=== PATIENT | male | born 1990 | race Caucasian/White ===

== ENCOUNTER 2021-04-18 15:49 | Emergency (ER) | payer BC, SELFPAY ==
[2021-04-18 19:00] VITALS: BP 126/88; PULSE 86; RESP 21; TEMP 37.2; O2SAT 99; BMI 26.2
[2021-04-18 19:08] LABS: UTC Strep Screen (Rapid) Negative (Negative)
--- NOTE | 2021-04-18 19:15 | HMH.EDUTC ---
[facility] [place] Disposition Clinical Impression: Upper respiratory infection, viral Disposition: Home, Self-Care Condition on Discharge: Good Instructions: COVID-19 Viral Test, DI for Viral Upper Respiratory Infection -- Adult Additional Instructions: covid swab was sent to lab, call tomorrow for results. self isolate until test results are known to be negative No sign of a bacterial infection. Likely viral. Viruses can take 7-14 days to run their course. Nasal saline and bulb syringe or nose Edilia to remove nasal drainage to help with nasal congestion. Hard to eat, drink, sleep with nasal congestion so important to keep this cleaned out. Monitor temp. Tylenol or Motrin as needed for pain or fever Encourage fluids, water, Gatorade, Powerade, Pedialyte if infant/toddler/child Warm salt water gargles Warm fluids Sore throat lozenges Sleep elevated Humidifier/vaporizer Follow-up immediately for new or worsening symptoms or no noticeable improvement over the next 48-72 hours. Referrals: Demetrio Thompson MD [Primary Care Provider] - Forms: Work/School Release Time of Disposition: 19:18 Medical Decision Making - Gume Inquiry Pt receiving controlled substance: No - Lab Data Lab Results 04/18/21 18:57: Strep Scn Rapid Clinic Negative Orders (Tests/Meds): ORDERS Category Date Time Status Covid-19 Nasal PCR ([facility]) Routine Lab 04/18/21 18:48 Received Strep Screen Confirmation Stat Micro 04/18/21 18:57 Received [facility] [place] HPI - General Chief complaint: Urgent Treatment Center Stated complaint: at home postive test , also possible strep Time Seen by Provider: 04/18/21 19:15 Mode of Arrival: Ambulatory Source of Information: Patient Limitations: No Limitations - History of Present Illness Provider Complaint: 30 yr old male presents for covid test, tested positive at home. pt reports cough,body aches,chills, and sore throat - Related Data Allergies Allergy/AdvReac Type Severity Reaction Status Date / Time No Known Allergies Allergy Verified 05/10/17 16:14 [facility] History - Hepatitis A Screen Attestation statement:: This patient has been screened for Hepatitis A risk factors. I have reviewed the patient's past medical history: Yes ROS Obtained: Yes Systems reviewed as appropriate & no additional complaints - Constitutional Constitutional: Reports system reviewed and no additional complaints, except as docu, Reports body ache, Reports chills, Reports fatigue, Denies fever(s) - Eyes Eyes: Reports system reviewed and no additional complaints, except as docu, Denies blind spots - ENT Ears, Nose, Mouth, and Throat: Reports system reviewed and no additional complaints, except as docu, Reports headache(s), Reports nasal congestion, Reports sinus pressure, Reports sore throat - Cardiovascular Cardiovascular: Reports system reviewed and no additional complaints, except as docu, Denies chest pain - Respiratory Respiratory: Reports system reviewed and no additional complaints, except as docu, Reports cough - Gastrointestinal Gastrointestingal: Reports: system reviewed and no additional complaints, except as docu. Denies: abdominal pain - Genitourinary Male Genitourinary: Reports system reviewed and no additional complaints, except as docu - Musculoskeletal Musculoskeletal: Reports system reviewed and no additional complaints, except as docu, Denies joint pain - Integumentary/Breasts Skin/Breast: Reports system reviewed and no additional complaints, except as docu, Denies rash - Neurologic Neurologic: Reports system reviewed and no additional complaints, except as docu, Denies loss of vision - Endocrine Endocrine: Reports system reviewed and no additional complaints, except as docu, Denies fatigue - Hematologic/Lymphatic Henatologic/Lymphatic: Reports system reviewed and no additional complaints, except as docu, Denies easy bruising - Allergic/Immunologic Allergic/Immunologic: Reports sys
[2021-04-18 19:20] VITALS: BP 126/88; PULSE 86; RESP 21; TEMP 37.2; O2SAT 99
[2021-04-18 19:55] LABS: Adenovirus,PCR Not Detected (NotDetected); Bordetella Pertussis Not Detected (NotDetected); Chlamydophila Pneumoniae, PCR Not Detected (NotDetected); Coronavirus 229E Not Detected (NotDetected); Coronavirus NL63 Not Detected (NotDetected); Coronavirus OC43 Not Detected (NotDetected); Coronovirus HKU1,PCR Not Detected (NotDetected); Human Metapneumovirus Not Detected (NotDetected); Influenza A, PCR Not Detected (NotDetected); Influenza AH1, 2009 Not Detected (NotDetected); Influenza AH1, PCR Not Detected (NotDetected); Influenza AH3,PCR Not Detected (NotDetected); Influenza B, PCR Not Detected (NotDetected); Mycoplasma Pneumoniae, PCR Not Detected (NotDetected); Parainfluenza 1, PCR Not Detected (NotDetected); Parainfluenza 2, PCR Not Detected (NotDetected); Parainfluenza 3, PCR Not Detected (NotDetected); Parainfluenza 4, PCR Not Detected (NotDetected); Respiratory Syncytial Virus Not Detected (NotDetected); Rhinovirus/Enterovirus Not Detected (NotDetected)
[2021-04-18 21:27] LABS: Coronavirus 19, PCR Detected (NotDetected)
== END 2021-04-18 19:25 | disposition home or self-care (01) ==
PROVIDERS: Emergency Provider Nurse Practitioner Family; PCP Family Medicine
DX: U07.1 COVID-19 (principal); J06.9 Acute upper respiratory infection, unspecified
CPT/HCPCS: 87581; 87632; 87798; 87880; 99203; C9803; G0463; U0003; U0005

== ENCOUNTER 2021-09-02 13:58 | Emergency (ER) | payer BC, SELFPAY ==
--- NOTE | 2021-09-02 14:03 | XR_ITS ---
FINAL REPORT CLINICAL HISTORY: swollen and pain lt ankle, rolled ankle 10 days ago FINDINGS: AP, oblique, and lateral views of the left ankle were obtained. There is no prior exam for comparison. There is no fracture or dislocation. The ankle mortise is intact. There is mild lateral soft tissue swelling. IMPRESSION: No acute osseous abnormality of the left ankle. Lateral soft tissue swelling. Reviewed, Interpreted and Dictated by Allison Pinon MD Transcribed by Jluis Oconnor Authenticated by Allison Pinon MD on 09/02/2021 02:53:43 PM [facility]
[2021-09-02 14:20] VITALS: BP 117/73; PULSE 61; RESP 19; TEMP 36.6; O2SAT 98; BMI 27.8
--- NOTE | 2021-09-02 14:27 | HMH.EDUTC ---
[facility] [place] Disposition Clinical Impression: Contact dermatitis Qualifiers: Contact dermatitis type: allergic Contact dermatitis trigger: non-food plants Qualified Code(s): L23.7 - Allergic contact dermatitis due to plants, except food Left ankle sprain Qualifiers: Encounter type: initial encounter Involved ligament of ankle: unspecified ligament Qualified Code(s): S93.402A - Sprain of unspecified ligament of left ankle, initial encounter Disposition: Home, Self-Care Condition on Discharge: Good Instructions: DI for Poison Ely Allergy, DI for Ankle Sprain Additional Instructions: Avoid contact with the offending substance (poison ely). Don't start the oral steroids until tomorrow. Don't put the topical steroids (triamcinolone) on your face or your groin. Follow up with your regular doctor. GO TO THE ER FOR ANY WORSENING SYMPTOMS OR CONCERNS Rest the extremity, Elevate the extremity as tolerated while you are resting. Take ibuprofen for pain. Follow up with Dr. Keith (podiatry). Sometimes there can be fractures that don't show up well on the first set of x-rays. So, you should follow up. I put in a referral but you need to call her office and schedule an appointment. Follow up with your regular doctor. GO TO THE ER FOR ANY WORSENING SYMPTOMS Prescriptions: methylPREDNISolone [Medrol] 4 mg PO DIRECTED 6 Days #21 packet Transmission Status: Received by [id number] Triamcinolone Acetonide 1 applicatio TP TIDP PRN 7 Days #1 gm PRN Reason: Itching Transmission Status: Received by [id number] Referrals: Demetrio Thompson MD [Primary Care Provider] - Jordyn Keith DPM [Staff Physician] - Time of Disposition: 14:49 Medical Decision Making - Medical Records Medical records reviewed: No: I reviewed the patient's medical records. - Gume Inquiry Pt receiving controlled substance: No Vital Signs: 09/02/21 14:20 09/02/21 14:52 Temperature 97.8 F 97.8 F Temperature Source Oral Oral Pulse Rate 61 Pulse Rate [Left Radial] 61 Respiratory Rate 19 19 Blood Pressure 117/73 Blood Pressure [Right Arm] 117/73 Blood Pressure Mean [Right Arm] 87 02 Sat by Pulse Oximetry 98 Orders (Tests/Meds): ED MEDICATIONS Discontinued Medications Generic Name Dose Route Start Last Admin Trade Name Freq PRN Reason Stop Dose Admin Methylprednisolone Sodium Succinate 125 mg 09/02/21 14:27 09/02/21 14:49 Methylprednisolone Sod Succ 125mg Vial IM 09/02/21 14:28 125 mg ONCE ONE Administration - Radiology Data #1 Image(s): Ankle Image Reviewed: Yes I reviewed the patient's radiology image, Yes I have reviewed radiologist's interpretation Preliminary Findings: Normal/NAD, No Fracture Seen FINAL REPORT CLINICAL HISTORY: swollen and pain lt ankle, rolled ankle 10 days ago FINDINGS: AP, oblique, and lateral views of the left ankle were obtained. There is no prior exam for comparison. There is no fracture or dislocation. The ankle mortise is intact. There is mild lateral soft tissue swelling. IMPRESSION: No acute osseous abnormality of the left ankle. Lateral soft tissue swelling. Reviewed, Interpreted and Dictated by Allison Pinon MD Transcribed by Jluis Oconnor Authenticated by Allison Pinon MD on 09/02/2021 02:53:43 PM [facility] HPI - General Stated complaint: possible posion ely Time Seen by Provider: 09/02/21 14:27 - History of Present Illness Provider Complaint: He is here with 2 complaints. He has had poison ely on his feet and face for the past 1 week. Also, he twisted her left ankle last week and it is still hurting him. He states that walking and bearing weight on the foot and ankle makse it worse. He denies any other injury. - Related Data Previous Rx's Medication Instructions Recorded Triamcinolone Acetonide 1 applicatio TP TIDP PRN 7 Days #1 09/02/21 gm
[2021-09-02 14:52] VITALS: BP 117/73; PULSE 61; RESP 19; TEMP 36.6
== END 2021-09-02 14:53 | disposition home or self-care (01) ==
PROVIDERS: Emergency Provider Nurse Practitioner Family; PCP Family Medicine
DX: L23.7 Allergic contact dermatitis due to plants, except food (principal); S93.402A Sprain of unspecified ligament of left ankle, initial encounter; Z79.52 Long term (current) use of systemic steroids
CPT/HCPCS: 73610; 99213; G0463